=== PATIENT | female | born 1960 | race Caucasian/White ===

== ENCOUNTER 2017-11-14 23:25 | Emergency (ER) | payer OTHER, SELFPAY ==
[2017-11-15] MEDS ORDERED: cloNIDine HCl 0.1 MG TAB ONE (00:15)
--- NOTE | 2017-11-15 01:41 | ER ---
Nurse's Notes [facility] Name: Delicia Ludwig Age: 57 yrs Sex: Female : 1960 Arrival Date: 11/14/2017 Time: 23:29 Bed 6 Private MD: Gianluca Marroquin Diagnosis: Essential (primary) hypertension Presentation: 11/14 23:40 Presenting complaint: Patient states: lightheadedness and palpitation since 1000H mg2 today. denies headache, vomiting and chest pain. Transition of care: patient was not received from another setting of care. Onset of symptoms was November 14, 2017. Risk Assessment: Do you want to hurt yourself or someone else? Patient reports no desire to harm self or others. Initial Sepsis Screen: Does the patient meet any 2 criteria? No. Patient's initial sepsis screen is negative. Does the patient have a suspected source of infection? No. Patient's initial sepsis screen is negative. Care prior to arrival: None. 23:40 Method Of Arrival: Ambulatory mg2 23:40 Acuity: KATHIA 2 mg2 Historical: - Allergies: 23:41 No Known Allergies; mg2 - Home Meds: 23:41 None [Active]; mg2 - PMHx: 23:41 None; mg2 - PSHx: 23:41 None; mg2 - Immunization history:: Flu vaccine is not up to date. - Social history:: Smoking status: Patient/guardian denies using tobacco, Patient/guardian denies using alcohol, street drugs, tobacco products. - Ebola Screening: : No symptoms or risks identified at this time. Screenin/21 00:37 Abuse screen: Denies threats or abuse. Denies injuries from another. Nutritional mg2 screening: No deficits noted. On no prescribed diet. Tuberculosis screening: No symptoms or risk factors identified. Fall Risk Secondary diagnosis (15 points) lightheadedness. Assessment: 00:17 Reassessment: pt asked that we do not do labs or IV that she will follow up with Dr. niki Marroquin in the morning. pt refused labs, and IV. BERNARDINO Eastman notified of pt choice. no new orders given at this time. . 00:36 General: Appears in no apparent distress. comfortable, Behavior is calm, cooperative. mg2 Pain: Denies pain. Neuro: Level of Consciousness is awake, alert, obeys commands, Oriented to person, place, time, situation. Cardiovascular: Reports lightheadedness, palpitations, Rhythm is sinus rhythm. Respiratory: Airway is patent Respiratory effort is even, unlabored, Respiratory pattern is regular, symmetrical. GI: No signs and/or symptoms were reported involving the gastrointestinal system. : No signs and/or symptoms were reported regarding the genitourinary system. EENT: Derm: Skin is intact, Skin is pink, warm \T\ dry. normal. Musculoskeletal: No signs and/or symptoms reported regarding the musculoskeletal system. 01:30 Reassessment: Patient appears in no apparent distress at this time. Patient and/or mg2 family updated on plan of care and expected duration. Pain level reassessed. Patient is alert, oriented x 3, equal unlabored respirations, skin warm/dry/pink. Vital Signs: 11/14 23:41 BP 239 / 106; Pulse 82; Resp 18; Temp 98.7(O); Pulse Ox 98% ; Weight 68.04 kg; Height 5 mg2 ft. 2 in. (157.48 cm); Pain 0/10; 11/15 00:39 BP 177 / 93; Pulse 80; Resp 18; Pulse Ox 100% on R/A; Pain 0/10; mg2 01:30 BP 166 / 78; Pulse 78; Resp 18; Pulse Ox 100% on R/A; Pain 0/10; mg2 02:12 BP 143 / 87; Pulse 81; Resp 18; Pulse Ox 100% on R/A; Pain 0/10; mg2 11/14 23:41 Body Mass Index 27.44 (68.04 kg, 157.48 cm) mg2 ED Course: 11/14 23:29 Patient arrived in ED. es 23:29 Gianluca Marroquin MD is Private Physician. es 23:40 Kristopher Newman RN is Primary Nurse. mg2 23:41 Triage completed. mg2 23:42 Arm band placed on. mg2 23:43 Jaren Dee NP is PHCP. pm1 23:43 Quirino Drake MD is Attending Physician. pm1 11/15 00:33 Note: PT REFUSED CXR. kw 00:38 No provider procedures requiring assistance completed. mg2 01:00 Patient has correct armband on for positive identification. Placed in gown. mg2 01:40 Gianluca Marroquin MD is Referral Physician. pm1 02:13 Patient did not have IV access during this emergency room visit. mg2 Administered Medications: 00:16 Drug: cloNIDine 0.2 mg Route: PO; lp1 02:10 Follow up: Response: No adverse reaction; Blood pressure is lowered mg2 Outcome: 01:40 Discharge ordered by . pm1 02:13 Discharged to home ambulatory, with family. mg2 02:13 Condition: stable 02:13 Discharge instructions given to patient, family, Instructed on discharge instructions, follow up and referral plans. Demonstrated understanding of instructions, follow-up care. 02:13 Patient left the ED. mg2 Signatures: Concepcion Barahona Kimberlee kw Pena, Laura, CARL RN lp1 Stormy Hilario RN RN ak1 Jaren Dee, SCRUBBER SYSTEM ATTENDANT SCRUBBER SYSTEM ATTENDANT pm1 Kristopher Newman RN RN mg2
--- NOTE | 2017-11-15 01:41 | EDPHYS ---
Physician Documentation [facility] Name: Delicia Ludwig Age: 57 yrs Sex: Female : 1960 Arrival Date: 11/14/2017 Time: 23:29 Bed 6 Private MD: Gianluca Marroquin ED Physician Quirino Drake HPI: 11/15 00:37 This 57 yrs old Female presents to ER via Ambulatory with complaints of High pm1 Blood Pressure and palpitations. 00:37 The patient has elevated blood pressure and discovered this at home, with a home pm1 device. Onset: The symptoms/episode began/occurred today. Modifying factors: The symptoms are aggravated by nothing. Associated signs and symptoms: Pertinent negatives: chest pain, dizziness, lightheadedness, nausea, vomiting. Severity of symptoms: in the emergency department the blood pressure is unchanged. The patient has not experienced similar symptoms in the past. The patient has not recently seen a physician, the patient's primary care provider is Dr. Dr. Marroquin, has an appointment scheduled, tomorrow morning. Patient reports the sensation of palpitations, stronger heart beat. Patient took her blood pressure and it was elevated. Patient does not check her blood pressure on a regular basis and does not take any medications for HTN. No history of HTN. Historical: - Allergies: 11/14 23:41 No Known Allergies; mg2 - Home Meds: 23:41 None [Active]; mg2 - PMHx: 23:41 None; mg2 - PSHx: 23:41 None; mg2 - Immunization history:: Flu vaccine is not up to date. - Social history:: Smoking status: Patient/guardian denies using tobacco, Patient/guardian denies using alcohol, street drugs, tobacco products. - Ebola Screening: : No symptoms or risks identified at this time. ROS: 11/15 00:41 Constitutional: Negative for fever, chills, and weight loss, Eyes: Negative for injury, pm1 pain, redness, and discharge, ENT: Negative for injury, pain, and discharge, Neck: Negative for injury, pain, and swelling. Respiratory: Negative for shortness of breath, cough, wheezing, and pleuritic chest pain, Abdomen/GI: Negative for abdominal pain, nausea, vomiting, diarrhea, and constipation, Back: Negative for injury and pain, : Negative for injury, bleeding, discharge, and swelling, MS/Extremity: Negative for injury and deformity, Skin: Negative for injury, rash, and discoloration, Neuro: Negative for headache, weakness, numbness, tingling, and seizure. Cardiovascular: Positive for palpitations, Negative for chest pain, edema, orthopnea. Exam: 00:41 Constitutional: This is a well developed, well nourished patient who is awake, alert, pm1 and in no acute distress. Head/Face: Normocephalic, atraumatic. Eyes: Pupils equal round and reactive to light, extra-ocular motions intact. Lids and lashes normal. Conjunctiva and sclera are non-icteric and not injected. Cornea within normal limits. Periorbital areas with no swelling, redness, or edema. ENT: Nares patent. No nasal discharge, no septal abnormalities noted. Tympanic membranes are normal and external auditory canals are clear. Oropharynx with no redness, swelling, or masses, exudates, or evidence of obstruction, uvula midline. Mucous membranes moist. Neck: Trachea midline, no thyromegaly or masses palpated, and no cervical lymphadenopathy. Supple, full range of motion without nuchal rigidity, or vertebral point tenderness. No Meningismus. Chest/axilla: Normal chest wall appearance and motion. Nontender with no deformity. No lesions are appreciated. Cardiovascular: Regular rate and rhythm with a normal S1 and S2. No gallops, murmurs, or rubs. Normal PMI, no JVD. No pulse deficits. 00:41 Abdomen/GI: Soft, non-tender, with normal bowel sounds. No distension or tympany. No guarding or rebound. No evidence of tenderness throughout. Back: No spinal tenderness. No costovertebral tenderness. Full range of motion. Skin: Warm, dry with normal turgor. Normal color with no rashes, no lesions, and no evidence of cellulitis. MS/ Extremity: Pulses equal, no cyanosis. Neurovascular intact. Full, normal range of motion. 00:41 ECG was reviewed by the Attending Physician. NSR 00:41 Neuro: Orientation: is normal, Motor: moves all fours, Gait: is steady, at a normal pace, without difficulty. Vital Signs: 11/14 23:41 BP 239 / 106; Pulse 82; Resp 18; Temp 98.7(O); Pulse Ox 98% ; Weight 68.04 kg; Height 5 mg2 ft. 2 in. (157.48 cm); Pain 0/10; 11/15 00:39 BP 177 / 93; Pulse 80; Resp 18; Pulse Ox 100% on R/A; Pain 0/10; mg2 01:30 BP 166 / 78; Pulse 78; Resp 18; Pulse Ox 100% on R/A; Pain 0/10; mg2 02:12 BP 143 / 87; Pulse 81; Resp 18; Pulse Ox 100% on R/A; Pain 0/10; mg2 11/14 23:41 Body Mass Index 27.44 (68.04 kg, 157.48 cm) mg2 MDM: 11/14 23:43 Patient medically screened. pm1 11/15 00:42 Data reviewed: vital signs. Data interpreted: Pulse oximetry: on room air is 100 %. pm1 Interpretation: normal. 01:38 Refusal of service: The patient/guardian displays adequate decision making capability pm1 and despite a detailed discussion of alternatives, benefits, risks, and consequences refuses: all lab tests, all X-rays, Patient just wants to get clonidine and the ECG. Patient plans to see Dr. Marroquin tomorrow and have fasting blood work performed at that time. Patient discussed the clonidine medication in the ER and plans to be initiated on blood pressure medications tomorrow due to possible rebound hypertension. 11/15 00:03 Order name: EKG; Complete Time: 00:05 pm1 11/15 00:03 Order name: Cardiac monitoring; Complete Time: 00:12 pm1 11/15 00:03 Order name: EKG - Nurse/Tech; Complete Time: 00:11 pm1 11/15 00:03 Order name: O2 Per Protocol; Complete Time: 00:12 pm1 11/15 00:03 Order name: O2 Sat Monitoring; Complete Time: 00:12 pm1 Administered Medications: 00:16 Drug: cloNIDine 0.2 mg Route: PO; lp1 02:10 Follow up: Response: No adverse reaction; Blood pressure is lowered mg2 Disposition: 15:37 Co-signature as Attending Physician, Quirino Drake MD I agree with the assessment and live plan of care. Disposition: 11/15/17 01:40 Discharged to Home. Impression: Essential (primary) hypertension. - Condition is Stable. - Discharge Instructions: Hypertension, How to Take Your Blood Pressure, [id number], DASH Eating Plan, Managing Your High Blood Pressure. - Medication Reconciliation Form, Thank You Letter form. - Follow up: Gianluca Marroquin MD; When: Tomorrow; Reason: Recheck today's complaints, Continuance of care, Re-evaluation by your physician. Follow up: Emergency Department; When: As needed; Reason: Worsening of condition. - Problem is new. - Symptoms have improved. Signatures: Dispatcher [employer] [facility] Quirino Drake MD MD cha Pena, Laura, RN RN lp1 Jaren Dee, TEA BAG MACHINE TENDER TEA BAG MACHINE TENDER pm1 Kristopher Newman, CARL RN mg2 Corrections: (The following items were deleted from the chart) 00:35 00:05 Chest Single View+[id number] ordered. [facility] 01:40 01:40 11/15/2017 01:40 Discharged to Home. Impression: Essential (primary) pm1 hypertension; Palpitations. Condition is Stable. Forms are Medication Reconciliation Form, Thank You Letter, Antibiotic Education, Prescription Opioid Use. Follow up: Gianluca Marroquin; When: Tomorrow; Reason: Recheck today's complaints, Continuance of care, Re-evaluation by your physician. Follow up: Emergency Department; When: As needed; Reason: Worsening of condition. Problem is new. Symptoms have improved. pm1 02:11 00:03 IV Saline Lock ordered. pm1 mg2 02:11 00:03 Labs collected and sent ordered. pm1 mg2 02:13 01:40 11/15/2017 01:40 Discharged to Home. Impression: Essential (primary) mg2 hypertension. Condition is Stable. Forms are Medication Reconciliation Form, Thank You Letter, Antibiotic Education, Prescription Opioid Use. Follow up: Gianluca Marroquin; When: Tomorrow; Reason: Recheck today's complaints, Continuance of care, Re-evaluation by your physician. Follow up: Emergency Department; When: As needed; Reason: Worsening of condition. Problem is new. Symptoms have improved. pm1
--- NOTE | 2017-11-15 06:36 | EKG ---
Test Date: 2017-11-14 Test Time: 23:47:33 [employer] Steamer: MEASUREMENT RESULTS: Intervals: Rate: 76 NH: 160 QRSD: 94 QT: 392 QTc: 441 [place]: P: 57 NH: 160 QRS: 22 T: 45 INTERPRETIVE STATEMENTS: Normal sinus rhythm Incomplete right bundle branch block Borderline ECG No previous ECG available for comparison Electronically Signed On 11-15-17 06:36:03 CDT by Colin Pimentel
== END 2017-11-15 02:13 | disposition home or self-care (01) ==
LOC: ER 23:25
DX: I10 Essential (primary) hypertension (principal)
CPT/HCPCS: 93005; 99284